=== PATIENT | female | born 1955 | race Caucasian/White ===

== ENCOUNTER → 2017-11-05 | Outpatient (CLI) | payer OTHER ==
[2017-11-05 08:07] LABS: CREATININE 0.9 mg/dL (0.6-1.3)
== END ==
LOC: M.MRI 07:40
PROVIDERS: Psychiatry & Neurology Neuromuscular Medicine
DX: I67.82 Cerebral ischemia (principal)

== ENCOUNTER 2018-10-09 22:41 | Emergency (ER) | payer MEDICARE ==
[~2018-10-09] VITALS: Ht 157.5 cm; Wt 101.6 kg
[2018-10-09] MEDS ORDERED: SYNTHROID137 MC1 PO (23:18)
[2018-10-09] MEDS ORDERED: AZOR 5-40 MG T1 EACH PO (23:19)
[2018-10-09] MEDS ORDERED: HYDROCHLOROTHIA25 M2 PO (23:19)
[2018-10-09] MEDS ORDERED: OMEPRAZOLE40 MG PO (23:20)
[2018-10-09] MEDS ORDERED: ZANTAC 150MG T150 MG PO (23:20)
[2018-10-09] MEDS ORDERED: GAVISCON TABLE1 EACH PO (23:20)
[2018-10-09] MEDS ORDERED: DOXYCYCLINE 10100 MG PO (23:33)
[2018-10-09] MEDS ORDERED: NORCO 5-325 TA1 EAC1 PO (23:33)
[2018-10-09] MEDS ORDERED: KEFLEX500 M1 PO (23:33)
[2018-10-09 23:52] VITALS: BP 157/85
== END 2018-10-09 23:53 | disposition home or self-care (01) ==
LOC: M.ERS 22:41
DX: L03.115 Cellulitis of right lower limb (principal); Z88.2 Allergy status to sulfonamides; Z98.890 Other specified postprocedural states; Z85.850 Personal history of malignant neoplasm of thyroid

== ENCOUNTER 2020-03-24 17:56 | Emergency (ER) | payer MEDICARE, OTHER ==
[~2020-03-24] VITALS: Ht 154.9 cm; Wt 108.9 kg
[~2020-03-24 17:56] MED LIST: AZOR 5-40 MG T1 EACH PO; DOXYCYCLINE 10100 MG PO; GAVISCON TABLE1 EACH PO; HYDROCHLOROTHIA25 M2 PO; KEFLEX500 M1 PO; NORCO 5-325 TA1 EAC1 PO; OMEPRAZOLE40 MG PO; SYNTHROID137 MC1 PO; ZANTAC 150MG T150 MG PO
[2020-03-24] MEDS ORDERED: LEVO-T25 MCG PO (18:08)
[2020-03-24] MEDS ORDERED: XTAMPZA ER18 MG PO (18:09)
[2020-03-24] MEDS ORDERED: GAVISCON 80-141 EACH PO (18:10)
[2020-03-24] MEDS ORDERED: OXAYDO5 MG PO (18:12)
[2020-03-24] MEDS ORDERED: XARELTO15 MG PO (18:12)
[2020-03-24] MEDS ORDERED: CELEXA 10 MG TA10 M1 PO (18:13)
[2020-03-24] MEDS ORDERED: COMPAZINE10 M2 PO (18:13)
[2020-03-24] MEDS ORDERED: FEMARA2.5 MG PO (18:14)
[2020-03-24 18:55] LABS: ABSOLUTE BASOPHILS 0.1 thou/uL (0.0-0.2); ABSOLUTE EOSINOPHILS 0.1 thou/uL (0.0-0.7); ABSOLUTE LYMPHOCYTES 1.3 thou/uL (0.8-5.3); ABSOLUTE MONOCYTES 0.8 thou/uL (0.0-1.2); ABSOLUTE NEUTROPHILS 4.8 thou/uL (1.6-8.1); BASOPHILS 0.8 %; EOSINOPHILS 1.4 %; HEMATOCRIT 35.8 % (37.0-47.0); HEMOGLOBIN 11.8 gm/dL (12.0-15.0); LYMPHOCYTES 17.8 %; MCHC 33.1 g/dL (28.0-37.0); MCV 102.7 fL (80.0-100.0); MONOCYTES 10.9 %; MPV 10.4 fl. (7.2-11.1); NUCLEATED RBCS 0 /100WBC; PLATELET COUNT* 275 thou/uL (150-400); POLYS 69.1 %; RBC 3.48 mil/uL (4.20-5.00); RDW-CV 14.7 % (10.5-14.5)
[2020-03-24 19:02] LABS: CALCIUM 8.3 mg/dL (8.5-10.1); CREATININE 0.7 mg/dL (0.6-1.3); POTASSIUM 3.5 mmol/L (3.5-5.1)
[2020-03-24 19:12] LABS: ALBUMIN 3.1 g/dL (3.4-5.0); MAGNESIUM 1.9 mg/dL (1.8-2.4); TOTAL BILIRUBIN 0.3 mg/dL (<0.1-1.0); TOTAL PROTEIN 7.3 g/dL (6.4-8.2)
[2020-03-24] MEDS ORDERED: AUGMENTIN 875-1 EACH PO (20:34)
[2020-03-24 20:43] VITALS: BP 171/70
--- NOTE | 2020-03-26 12:42 | EKG ---
[place] [address] ELECTROCARDIOGRAM REPORT Name: DEONDRE MOURA Room: [facility]#: [id number] Admission: 03/24/20 Attend Phys: Discharge: 03/24/20 Date of : 51 Date of Service: 03/24/201832 Report #: [id number] THIS REPORT FOR: //name// [facility] ED Test Date: 2020-03-24 Test Time: 18:33:09 Pat Name: DEONDRE MOURA Department: Room: Gender: F [employer] Worker: [facility] : 1955 Requested By: Ramin Lujan Order Number: [id number] MD: Roverto Dumas Measurements Intervals [place] Rate: 73 P: 77 IN: 157 QRS: 40 QRSD: 96 T: 28 QT: 404 QTc: 446 Interpretive Statements Sinus rhythm Minimal ST elevation, inferior leads No previous ECG available for comparison Electronically Signed On 03-26-2020 12:42:30 [employer]XIDE FURNACE TENDER by Roverto Dmuas [email or web address] <ELECTRONICALLY SIGNED> By: Roverto Dumas MD, [facility] 03/26/20 1242 32 32 Roverto Dumas MD, FACC /EPI
== END 2020-03-24 20:43 | disposition home or self-care (01) ==
LOC: M.ERS 17:56
PROVIDERS: Emergency Medicine Emergency Medical Services
DX: R07.81 Pleurodynia (principal); R00.2 Palpitations; Z98.890 Other specified postprocedural states; Z88.2 Allergy status to sulfonamides; Z88.5 Allergy status to narcotic agent

== ENCOUNTER 2021-05-29 12:44 | Inpatient (IN) | payer MEDICARE, OTHER ==
[~2021-05-29] VITALS: Ht 154.9 cm; Wt 105.7 kg
[~2021-05-29 12:44] MED LIST changes: +AUGMENTIN 875-1 EACH PO; +CELEXA 10 MG TA10 M1 PO; +COMPAZINE10 M2 PO; +FEMARA2.5 MG PO; +GAVISCON 80-141 EACH PO; +LEVO-T25 MCG PO; +OXAYDO5 MG PO; +XARELTO15 MG PO; +XTAMPZA ER18 MG PO
[2021-05-29 12:47] VITALS: BP 142/60
[2021-05-29 13:43] LABS: ABSOLUTE BASOPHILS 0.1 thou/uL (0.0-0.2); ABSOLUTE EOSINOPHILS 0.1 thou/uL (0.0-0.7); ABSOLUTE LYMPHOCYTES 1.2 thou/uL (0.8-5.3); ABSOLUTE MONOCYTES 0.9 thou/uL (0.0-1.2); ABSOLUTE NEUTROPHILS 7.5 thou/uL (1.6-8.1); EOSINOPHILS 1.1 %; HEMATOCRIT 35.1 % (37.0-47.0); HEMOGLOBIN 11.8 gm/dL (12.0-15.0); LYMPHOCYTES 12.5 %; MCH 31.4 pg (26.0-34.0); MCHC 33.7 g/dL (28.0-37.0); MCV 92.9 fL (80.0-100.0); MONOCYTES 8.8 %; MPV 9.6 fl. (7.2-11.1); NUCLEATED RBCS 0 /100WBC; PLATELET COUNT* 341 thou/uL (150-400); POLYS 76.6 %; RBC 3.78 mil/uL (4.20-5.00); RDW-CV 17.1 % (10.5-14.5); WBC 9.9 thou/uL (4.0-11.0)
[2021-05-29 14:19] LABS: CALCIUM 8.4 mg/dL (8.5-10.1); CREATININE 0.7 mg/dL (0.6-1.3); POTASSIUM 4.6 mmol/L (3.5-5.1)
[2021-05-29 14:24] LABS: TOTAL BILIRUBIN 0.5 mg/dL (<0.1-1.0); TOTAL PROTEIN 7.9 g/dL (6.4-8.2)
--- NOTE | 2021-05-29 14:30 | EKG ---
[place] [address] ELECTROCARDIOGRAM REPORT Name: ZENYDEONDRE Diane Room: [facility]#: [id number] Admission: 05/29/21 Attend Phys: Discharge: Date of : 51 Date of Service: 05/29/21 1339 Report #: [id number] THIS REPORT FOR: //name// [facility] ED Test Date: 2021-05-29 Test Time: 13:39:17 Pat Name: DEONDRE MOURA Department: Room: Gender: F Charge Authorizer: [facility] : 1955 Requested By: Amari Joe Order Number: [id number] MD: Fam Payne Measurements Intervals [place] Rate: 77 P: 89 SD: 154 QRS: 37 QRSD: 89 T: 33 QT: 383 QTc: 434 Interpretive Statements Sinus rhythm RSR' in V1 or V2, probably normal variant Compared to ECG 03/24/2020 18:33:09 RSR' in V1 or V2 now present ST (T wave) deviation no longer present Electronically Signed On 05-29-2021 14:30:43 REGISTERED DIETICIAN by Fam Payne [email or web address] <ELECTRONICALLY SIGNED> By: Fam Payne MD, [facility] 05/29/21 1430 1339 1339 Fam Payne MD, [facility] /EPI
[2021-05-29 15:01] VITALS: BP 146/89
[2021-05-29 19:00] VITALS: BP 144/83
[2021-05-29 21:20] VITALS: BP 144/83
[2021-05-29 21:30] VITALS: BP 142/74
[2021-05-30] VITALS: BP 149/68
[2021-05-30 01:57] LABS: URINE BILIRUBIN NEGATIVE (Negative); URINE BLOOD NEGATIVE (Negative); URINE CLARITY CLEAR; URINE COLOR YELLOW; URINE GLUCOSE-RANDOM NEGATIVE (Negative); URINE KETONES TRACE (Negative); URINE LEUKOCYTES-REFLEX NEGATIVE (Negative); URINE NITRITE-REFLEX NEGATIVE (Negative); URINE PROTEIN NEGATIVE (Negative); URINE UROBILINOGEN 0.2 E.U./dl (0.2-1.0)
[2021-05-30 08:00] VITALS: BP 135/75
[2021-05-30] MEDS ORDERED: TYLENOL325 MG PO (10:55)
[2021-05-30] MEDS ORDERED: XANAX 0.5 MG0.5 M1 PO (10:56)
[2021-05-30] MEDS ORDERED: CENTRUM SILVER1 EAC5 PO (10:58)
[2021-05-30] MEDS ORDERED: CIMETIDINE 400400 MG PO (10:59)
[2021-05-30] MEDS ORDERED: ARTHRITIS PAIN100 GM TOP (10:59)
[2021-05-30] MEDS ORDERED: ALL DAY ALLERGY10 M3 PO (10:59)
[2021-05-30] MEDS ORDERED: LEXAPRO 10 MG T10 M1 PO (11:00)
[2021-05-30] MEDS ORDERED: COLACE100 MG PO (11:00)
[2021-05-30] MEDS ORDERED: MIRALAX17 G1 PO (11:01)
[2021-05-30] MEDS ORDERED: FAMOTIDINE 20 M20 MG PO (11:01)
[2021-05-30] MEDS ORDERED: TUMS300 MG PO (11:02)
[2021-05-30] MEDS ORDERED: ONDANSETRON HCL8 MG PO (11:02)
[2021-05-30] MEDS ORDERED: VITAMIN C1000 MG PO (11:03)
[2021-05-30] MEDS ORDERED: NOXIFOL-D32500 UNIT PO (11:04)
[2021-05-30 16:25] VITALS: BP 133/78
[2021-05-30 22:00] VITALS: BP 144/76
[2021-05-31 00:27] VITALS: BP 134/65
[2021-05-31 08:00] VITALS: BP 159/70
[2021-05-31 16:00] VITALS: BP 140/74
[2021-05-31 20:00] VITALS: BP 140/77
[2021-06-01 00:10] VITALS: BP 139/75
[2021-06-01 08:00] VITALS: BP 165/81
[2021-06-01] MEDS ORDERED: NORCO5 PO (09:55)
[2021-06-01] MEDS ORDERED: XTAMPZA ER18 MG PO (09:55)
[2021-06-01] MEDS ORDERED: AMOX TR-K CLV1 EAC4 PO (09:55)
[2021-06-01] MEDS ORDERED: OXAYDO5 MG PO (09:55)
[2021-06-01] MEDS ORDERED: XANAX 0.5 MG0.5 M1 PO (09:55)
[2021-06-01 16:50] VITALS: BP 143/86
[2021-06-01 19:42] VITALS: BP 167/86
[2021-06-01 23:54] VITALS: BP 150/90
[2021-06-02 08:48] VITALS: BP 166/82
[2021-06-02 13:34] VITALS: BP 166/82
== END 2021-06-02 15:59 | disposition home or self-care (01) | DRG 543 ==
LOC: M.ERS 12:44 → M.2W 14:25 → M.TBA-ER 14:25 → M.2W 21:51
PROVIDERS: Family Medicine; ADMIT Internal Medicine; ATTEND Internal Medicine
DX: M48.56XA Collapsed vertebra, not elsewhere classified, lumbar region, initial encounter for fracture (principal); L03.312 Cellulitis of back [any part except buttock and flank]; C79.51 Secondary malignant neoplasm of bone; G89.3 Neoplasm related pain (acute) (chronic); C50.919 Malignant neoplasm of unspecified site of unspecified female breast; Z20.822 Contact with and (suspected) exposure to COVID-19; S39.012A Strain of muscle, fascia and tendon of lower back, initial encounter; R07.81 Pleurodynia; M89.9 Disorder of bone, unspecified; Z85.850 Personal history of malignant neoplasm of thyroid; Z88.6 Allergy status to analgesic agent; Z88.2 Allergy status to sulfonamides; X58.XXXA Exposure to other specified factors, initial encounter; Y93.89 Activity, other specified; Y92.89 Other specified places as the place of occurrence of the external cause; Y99.8 Other external cause status